=== PATIENT | male | born 1985 | race Caucasian/White ===

== ENCOUNTER 2017-04-29 08:35 | Day surgery (SDC) | payer MEDICARE, OTHER ==
[2017-04-29 09:38] LABS: PROTHROMBIN TIME 13.9 SEC (11.4-15.4)
[2017-04-29 13:59] VITALS: BP 132/78
--- NOTE | 2017-04-29 14:03 | RADIOLOGY REPORT (SQ) ---
EXAM DESCRIPTION: MYELOGRAM LUMBAR; CT LUMBAR SPINE WITH COMPLETED DATE/TIME: 04/29/2017 11:35 am; 04/29/2017 11:36 am REASON FOR STUDY: POST LAMINECTOMY SYNDROME; MYELOGRAM, BACK PAIN M96.1 POSTLAMINECTOMY SYNDROME, N OT ELSEWHERE CLASSIFIED Z79.01 SENIOR CARE (CURRENT) USE OF ANTICOAGULANTS COMPARISON: None. FLUOROSCOPY TIME: 46 seconds TECHNIQUE: Fluoroscopic guided lumbar myelogram. Postmyelogram CT with sagittal and coronal reconst ructions of the lumbar spine. LIMITATIONS: None. PROCEDURE: After written consent and assessment were obtained, the patient was brought into the fluo roscopy room and placed prone on the table. The patient's lower back was prepped in a sterile fashio n and an entry site was selected under live fluoroscopic guidance. The entry site was anesthetized wi th 4 mL of 1% lidocaine. The 22 gauge spinal needle was advanced through the skin and into the thecal sac at the level right paracentral L2-3 level. Contrast was injected into the thecal sac. Followin g the procedure the needle was removed and a sterile bandage was placed of the site. CONTRAST: 7 mL Isovue M 200. IMAGES ACQUIRED: Prone cross-table lateral, upright flexion and extension, prone oblique, semi-erect oblique images of the lumbar spine. Post myelogram CT with sagittal and coronal reconstruction. TECHNIQUE: After performing lumbar myelogram, axial images were acquired through the lumbar spine wi thout intravenous contrast. Images reviewed with lung, soft tissue and bone windows. Reconstructed coronal and sagittal MPR images reviewed. All images stored on PACS. All CT scanners at this facility use dose modulation, iterative reconstruction, and/or weight based d osing when appropriate to reduce radiation dose to as low as reasonably achievable (ALARA). [facility]: Dose Right [facility]: CareDose [facility]: Dose Right [facility]: Teradose 4D [facility]: CoinJar FINDINGS: On the fluoroscopic images, there are symmetric nerve root sleeves from L3 through L5 bila terally. On the upright flexion and extension images a small a moderate size ventral epidural bulge is present at the L5-S1 level. SEGMENTATION: Normal. No transitional anatomy. ALIGNMENT: Normal. VERTEBRAL BODIES: No fractures. No dislocation. No acute findings. HARDWARE: There are bilateral dorsal column stimulator electrodes entering the dorsal epidural space at the T12-L1 level. DISCS: T12-L1: Unremarkable. Conus is at the mid L1 vertebral body level. L1-L2: Unremarkable L2-L3: Very mild posterior disc bulging is present with mild bilateral facet and ligament hypertrophy . Somewhat short pedicles. These findings combine to cause borderline central canal narrowing. No significant foraminal narrowing. L3-L4: Minimal posterior disc bulging, mild bilateral facet and ligament hypertrophy, somewhat short pedicles. Borderline central canal narrowing. No significant foraminal narrowing. L4-L5: Mild diffuse posterior disc bulging with a small central protrusion. Mild bilateral facet and ligament hypertrophy. Mild central canal stenosis. Mild bilateral inferior foraminal narrowing wit hout exiting nerve root impingement. L5-S1: Post left micro laminectomy. Broad diffuse disc bulging is present with a small central and r ight paracentral protrusion and bone spur, best shown on axial images 82-84. There is high-grade rig ht foraminal narrowing from asymmetric foraminal and lateral disc bulge and bony spurring and asymmet carina right-sided facet hypertrophy. This is best shown on axial images through L5-S1 disc space. On the left side, moderate foraminal narrowing is present without definite exiting left L5 nerve root im pingement. On the axial images through the S1 nerve roots, there is poor filling of the right S1 nerve root slee ve with contrast in good filling of the left S1 nerve root sleeve with contrast. PEDICLES, TRANSVERSE PROCESSES: No fractures. No dislocation. No acute findings. FACETS, POSTERIOR ELEMENTS: Multilevel facet hypertrophy VISUALIZED RIBS: No fractures. SOFT TISSUES: No significant or acute finding in adjacent soft tissues. OTHER: No other significant finding. IMPRESSION: Degenerative changes at L5-S1. There is broad diffuse disc bulging with a right paracen tral and proximal foraminal bulge and bony spur causing high-grade right L5-S1 foraminal narrowing an d poor filling of the right L5 nerve root sleeve. Inferior to the L5-S1 disc bulge and bony spur, there is truncation of filling of the right proximal S1 nerve root. Left S1 nerve root fills well. COMMENT: Patient medication list reviewed: Yes- Quality ID# [id number]:Eligible professional attests to doc umenting in the medical record they obtained, updated, or reviewed the patient's current medications. TECHNICAL DOCUMENTATION: JOB ID: [id number] Quality ID # [id number]: Final reports with documentation of one or more dose reduction techniques (e.g., Au tomated exposure control, adjustment of the mA and/or kV according to patient size, use of iterative reconstruction technique) 2010 [employer]- All Rights Reserved
== END 2017-04-29 13:45 | disposition home or self-care (01) ==
LOC: RAD 08:35
PROVIDERS: ATTEND Pain Medicine Pain Medicine
PROC: 009U3ZX Drainage of Spinal Canal, Percutaneous Approach, Diagnostic (ICD-10-PCS; principal; 2017-04-29)
DX: M96.1 Postlaminectomy syndrome, not elsewhere classified (principal); Z79.01 Long term (current) use of anticoagulants; M54.5 Low back pain; M47.817 Spondylosis without myelopathy or radiculopathy, lumbosacral region; G89.4 Chronic pain syndrome
CPT/HCPCS: 36415; 72132; 72265; 85610; 85730

== ENCOUNTER → 2017-11-04 | Outpatient (CLI) | payer MEDICARE, OTHER ==
--- NOTE | 2017-11-04 14:23 | RADIOLOGY REPORT (SQ) ---
EXAM DESCRIPTION: L SPINE 2 VIEWS COMPLETED DATE/TIME: 11/04/2017 1:27 pm REASON FOR STUDY: LUMBAR SPONDYLOSIS M47.816 SPONDYLOSIS W/O MYELOPATHY OR RADICULOPATHY, LUMBAR COMPARISON: None. NUMBER OF VIEWS: Lumbar myelogram and postmyelogram CT 04/29/2017 TECHNIQUE: AP and lateral radiographic images acquired of the lumbar spine. LIMITATIONS: None. FINDINGS: MINERALIZATION: Normal. SEGMENTATION: Normal. No transitional anatomy. ALIGNMENT: Normal. VERTEBRAE: Maintained height. No fracture or worrisome bone lesion. DISCS: Mild disc space loss of height at L4-5, stable. Since the prior studies patient has undergone anterior fusion at L5-S1. Disc space prosthesis at the L5-S1 disc level. POSTERIOR ELEMENTS: Pedicles and facets are intact. No pars defect or posterior arch defects. HARDWARE: Anterior fusion hardware at L5-S1. Dorsal column stimulator battery pack over the right gl uteal region, electrodes coursing up out of the field of view. PARASPINAL SOFT TISSUES: Normal. PELVIS: Intact as visualized. No fractures or worrisome bone lesions. SI joints intact. OTHER: No other significant finding. IMPRESSION: Post L5-S1 anterior fusion. Normal alignment. TECHNICAL DOCUMENTATION: JOB ID: [id number] [employer]- All Rights Reserved
== END ==
LOC: RAD 13:07
PROVIDERS: ATTEND Physician Assistant
DX: M47.816 Spondylosis without myelopathy or radiculopathy, lumbar region (principal)
CPT/HCPCS: 72100

== ENCOUNTER → 2018-02-26 | Outpatient (CLI) | payer MEDICARE, OTHER ==
--- NOTE | 2018-02-26 16:20 | RADIOLOGY REPORT (SQ) ---
EXAM DESCRIPTION: L SPINE 2 VIEWS COMPLETED DATE/TIME: 02/26/2018 1:52 pm REASON FOR STUDY: ARTHRODESIS STATUS (Z98.1) S/P LUMBAR FUSION Z98.1 ARTHRODESIS STATUS COMPARISON: Lumbar myelogram/ postmyelogram CT 04/29/2017 Two-view lumbar spine 11/04/2017 NUMBER OF VIEWS: Two views. TECHNIQUE: AP and lateral radiographic images acquired of the lumbar spine. LIMITATIONS: None. FINDINGS: MINERALIZATION: Normal. SEGMENTATION: Normal. No transitional anatomy. ALIGNMENT: Normal. VERTEBRAE: Maintained height. No fracture or worrisome bone lesion. DISCS: Mild degenerative endplate changes with Schmorl's nodes at L1-2 L2-3 L3-4 and L4-5. Post ante rior fusion with disc spacer at L5-S1. No lucency around the screws worrisome for hardware loosening . POSTERIOR ELEMENTS: Bilateral facet arthropathy at L5-S1 and L4-5. HARDWARE: Anterior fusion at the L5-S1 level. No lucency around the screws worrisome for loosening. Since films 11/04/2017, the patient has neurostimulator has been removed. PARASPINAL SOFT TISSUES: Normal. PELVIS: Not included in the field of view OTHER: No other significant finding. IMPRESSION: Stable appearance of hardware at L5-S1. Lower lumbar facet arthropathy. TECHNICAL DOCUMENTATION: JOB ID: [id number] [employer]- All Rights Reserved Reading location - IP/workstation name: [email or web address]
== END ==
LOC: RAD 13:19
PROVIDERS: ATTEND Neurological Surgery
DX: M12.88 Other specific arthropathies, not elsewhere classified, other specified site (principal); Z98.1 Arthrodesis status
CPT/HCPCS: 72100

== ENCOUNTER → 2018-08-27 | Outpatient (CLI) | payer MEDICARE, OTHER ==
--- NOTE | 2018-08-27 15:35 | RADIOLOGY REPORT (SQ) ---
EXAM DESCRIPTION: L SPINE 2 VIEWS COMPLETED DATE/TIME: 08/27/2018 3:23 pm REASON FOR STUDY: M47.816 SPONDYLOSIS W/O MYELOPATHY OR RADICULOPATHY, LUMBAR REGION M47.816 SPONDY LOSIS W/O MYELOPATHY OR RADICULOPATHY, LUMBAR COMPARISON: 02/26/2018, 11/04/2017 NUMBER OF VIEWS: Two views. TECHNIQUE: Lateral flexion and extension radiographic images acquired of the lumbar spine. LIMITATIONS: None. FINDINGS: MINERALIZATION: Normal. SEGMENTATION: Normal. No transitional anatomy. ALIGNMENT: Normal. No instability on flexion/extension VERTEBRAE: Maintained height. No fracture or worrisome bone lesion. DISCS: Post anterior fusion with metallic disc spacer at L5-S1. Anterior fusion hardware screws. POSTERIOR ELEMENTS: Pedicles and facets are intact. No pars defect or posterior arch defects. Bilat eral facet arthropathy at L4-5 and L5-S1 HARDWARE: Fusion hardware L5-S1. PARASPINAL SOFT TISSUES: Normal. PELVIS: Not in the field of view OTHER: No other significant finding. IMPRESSION: Post fusion at L5-S1. No instability on flexion/ extension. Bilateral facet arthropathy at L4-5 and L5-S1 TECHNICAL DOCUMENTATION: JOB ID: [id number] [employer]- All Rights Reserved Reading location - IP/workstation name: [email or web address]
== END ==
LOC: RAD 15:03
PROVIDERS: ATTEND Physician Assistant
DX: M47.816 Spondylosis without myelopathy or radiculopathy, lumbar region (principal)
CPT/HCPCS: 72100

== ENCOUNTER → 2018-11-01 | Outpatient (CLI) | payer MEDICARE, OTHER ==
--- NOTE | 2018-11-01 10:34 | RADIOLOGY REPORT (SQ) ---
EXAM DESCRIPTION: CERV SP 6 OR MORE COMPLETED DATE/TIME: 11/01/2018 10:15 am REASON FOR STUDY: CERVICALGIA M54.2 CERVICALGIA COMPARISON: None. NUMBER OF VIEWS: Seven views. TECHNIQUE: AP, lateral, obliques, flexion, extension, and odontoid radiographic images acquired of t he cervical spine. LIMITATIONS: None. FINDINGS: MINERALIZATION: Normal. ALIGNMENT: Anatomic. FLEXION/EXTENSION: No instability. VERTEBRAE: Vertebral bodies of normal height. DISCS: Mild C5-6 degenerative changes. FORAMINA: No osteophytes or foraminal narrowing. LATERAL AND POSTERIOR ELEMENTS: Facets, lateral masses, and spinous processes without significant fin dings. HARDWARE: None in the spine. SOFT TISSUES: No masses or calcifications. Lung apices clear. OTHER: No other significant finding. IMPRESSION: Mild C5-6 degenerative changes. NO INSTABILITY ON FLEXION/EXTENSION. TECHNICAL DOCUMENTATION: JOB ID: [id number] [employer]- All Rights Reserved Reading location - IP/workstation name: [email or web address]
== END ==
LOC: RAD 09:36
PROVIDERS: ATTEND Pain Medicine Pain Medicine
DX: M54.2 Cervicalgia (principal)
CPT/HCPCS: 72052